=== PATIENT | male | born 1950 | race American Indian/Alaskan Native ===

== ENCOUNTER 2019-02-06 14:58 | Outpatient (CLI) | payer MEDICARE ==
--- NOTE | 2019-02-06 16:10 | XRay Report ---
CERVICAL SPINE, 5 VIEWS 02/06/2019 INDICATION / CLINICAL INFORMATION: CERVICAL PAIN. COMPARISON: None available. FINDINGS: No fracture. Moderate disc space narrowing is demonstrated at C3 3-C4 and C6-C7. Hypertrophic vertebral body degenerative changes are noted ventrally from C3 through C6. Diffuse facet joint degeneration. Alignment is well maintained. Signer Name: Cash Azevedo MD Signed: 02/06/2019 4:06 PM Workstation Name: [id number]
== END 2019-02-06 14:59 | disposition home or self-care (01) ==
LOC: XRAY 14:58
PROVIDERS: ATTEND Family Medicine
DX: M48.02 Spinal stenosis, cervical region (principal); M47.812 Spondylosis without myelopathy or radiculopathy, cervical region; G62.9 Polyneuropathy, unspecified
CPT/HCPCS: 72050